=== PATIENT | female | born 1975 | race African-American/Black ===

== ENCOUNTER → 2017-03-02 | Outpatient (CLI) | payer BC, SELFPAY ==
[2017-03-02 16:21] LABS: BASO % 0.5 % (0.0-1.0); EOS # 0.1 10^3/uL (0.0-0.50); EOS % 1.7 % (0.0-3.0); IMMATURE GRANULOCYTE % 0.4 % (0-0); LYMPH % 39.3 % (24.0-44.0); MEAN CORPUSCULAR HEMOGLOBIN 30.7 pg (27.0-33.0); MEAN CORPUSCULAR HGB CONC 33.7 g/dl (32.0-36.5); MEAN CORPUSCULAR VOLUME 91.2 fl (80.0-96.0); MONO # 0.4 10^3/uL (0.0-0.8); MONO % 5.5 % (0.0-5.0); NEUTROPHILS % 52.6 % (36.0-66.0); PLATELET COUNT, AUTOMATED 286 10^3/uL (150-450); RED CELL DISTRIBUTION WIDTH 13.5 % (11.5-14.5); WHITE BLOOD COUNT 7.6 10^3/uL (4.0-10.0)
[2017-03-02 16:37] LABS: ALBUMIN 3.5 GM/DL (3.2-5.2); ALBUMIN/GLOBULIN RATIO 1.09 (1.00-1.93); ALKALINE PHOSPHATASE 73 U/L (45-117); ALT/SGPT 13 U/L (12-78); ANION GAP 4 MEQ/L (8-16); AST/SGOT 8 U/L (15-37); BILIRUBIN,TOTAL 0.7 MG/DL (0.2-1.0); BLOOD UREA NITROGEN 14 MG/DL (7-18); CALCIUM LEVEL 8.7 MG/DL (8.5-10.1); CARBON DIOXIDE LEVEL 28 MEQ/L (21-32); CHLORIDE LEVEL 107 MEQ/L (98-107); CHOLESTEROL LEVEL 119 MG/DL (<200); CREATININE FOR GFR 0.81 MG/DL (0.55-1.02); FREE T4 0.97 NG/DL (0.76-1.46); GLOMERULAR FILTRATION RATE > 60.0 (>58); GLUCOSE, FASTING 87 MG/DL (70-105); POTASSIUM SERUM 4.6 MEQ/L (3.5-5.1); SODIUM LEVEL 139 MEQ/L (136-145); TOTAL PROTEIN 6.7 GM/DL (6.4-8.2); TRIGLYCERIDES LEVEL 38 MG/DL (<150)
--- NOTE | 2017-03-03 01:18 | REP ---
Clinical: Lumbago with sciatica. Technique: AP, lateral, bilateral oblique and coned-down views of the lumbosacral spine. Findings: Chronic spondylolysis at L5 is appreciated along with approximately 10 mm of anterolisthesis at the L5-S1 level. The remainder of the lower thoracic and lumbar spine is normal and without acute fracture / compression injury. Alignment and lordosis are otherwise maintained. Impression: 1. Chronic L5 spondylolysis with spondylolisthesis. Signed by Milton Camacho MD 03/03/2017 01:10 A
== END ==
LOC: M SMT 10:04
PROVIDERS: ATTEND Physician Assistant Medical
DX: M54.41 Lumbago with sciatica, right side (principal); Z13.220 Encounter for screening for lipoid disorders; Z83.49 Family history of other endocrine, nutritional and metabolic diseases; Z12.4 Encounter for screening for malignant neoplasm of cervix

== ENCOUNTER → 2017-03-18 | Outpatient (CLI) | payer BC ==
--- NOTE | 2017-03-18 18:43 | REP ---
Baseline bilateral screening digital mammogram: There are no palpable abnormalities or other breast complaints. The patient states that she/he has not had a clinical breast exam in over a year. There are no comparisons the study is a baseline study. There is dense heterogeneous breast parenchyma that could obscure a lesion. There is no dominant mass, micro calcific cluster or architectural distortion that would indicate malignancy. Impression: BIRADS category 1 negative mammogram. Routine annual screening mammography is recommended. This mammogram was interpreted with the aid of an FDA-approved computer-aided detection system. A. Negative x-ray reports should not delay biopsy if a dominant or clinically suspicious mass is present. B. Not all breast cancers are not identified by x-ray. C. Adenosis and dense breasts may obscure an underlying neoplasm. Patient letter M1 dense breasts.
== END ==
LOC: M WHC 16:26
PROVIDERS: ATTEND Physician Assistant Medical
DX: Z12.31 Encounter for screening mammogram for malignant neoplasm of breast (principal); R92.8 Other abnormal and inconclusive findings on diagnostic imaging of breast